=== PATIENT | male | born 1985 | race Caucasian/White ===

== ENCOUNTER 2022-08-07 03:57 | Inpatient (IN) | payer BC, SELFPAY ==
[2022-08-07] VITALS (13 sets, daily range): BP systolic 97–153; BP diastolic 43–82; PULSE 57–138; RESP 12–26; TEMP 36.7–37.2; O2SAT 93–99; BMI 30.5; BMI 32.2
--- NOTE | ~2022-08-07 | CT_ITS ---
EXAMINATION: CT HEAD WITHOUT CONTRAST CLINICAL INFORMATION: Altered mental status, new seizure COMPARISON: None available. TECHNIQUE: Contiguous axial imaging was performed from the skull base to vertex without intravenous administration of contrast. This CT examination was performed using dose optimization techniques as appropriate, variously including the following: *Automated exposure control *Adjustment of mA and/or kV according to patient size (this includes techniques or standardized protocols for targeted exams where dose is matched to indication/reason for exam; i.e. extremities or head) *Use of iterative reconstruction technique DLP: 679 mGy-cm FINDINGS: There is no evidence of acute intracranial hemorrhage or territorial infarction. No abnormal mass-effect or midline shift is seen. Evans to white matter differentiation is well preserved. No extra-axial fluid collections are identified. The ventricles are normal in size. There is no abnormal attenuation within the brain parenchyma. The osseous structures and soft tissues are normal. The mastoid air cells and visualized portions of the paranasal sinuses are well-aerated. CT/CT head/brain wo IV con IMPRESSION: No acute intracranial pathology.
--- NOTE | ~2022-08-07 | MR_ITS ---
EXAMINATION: MRI BRAIN WITHOUT CONTRAST CLINICAL INFORMATION: New onset seizures. COMPARISON: CT scan of the head 08/07/2022. TECHNIQUE: Multiplanar MR imaging the brain was performed without contrast. FINDINGS: Dedicated imaging through the temporal lobes reveals subtle asymmetric T2 signal hyperintensity within the left hippocampus. The left hippocampus is slightly rounded on coronal imaging and there is a somewhat vertical orientation of the collateral sulcus best depicted on the image 9 of 25 series 8. Otherwise no clear evidence of a discrete cortical lesion is visualized elsewhere within the right or left cerebral hemispheres. No identifiable malformation of cortical development. There is no acute territorial infarct. No pathological magnetic susceptibility artifact. Intracranial vascular flow voids are grossly maintained. Lateral and third ventricles are normal. No hydroceles. Midline structures including the cervicomedullary junction are normal. No acute bone marrow signal changes. There is no mastoid or middle ear effusion. Trivial mucosal thickening within ethmoid air cells. Globes and orbits are symmetric. MR/MR head/brain wo con IMPRESSION: There are anatomic features indicating the likelihood of incomplete left hippocampal inversion and there is also slight asymmetric signal abnormality within the left hippocampus that may represent superimposed post ictal changes particularly in the setting of recent seizure. No other identifiable malformation of cortical development is visualized elsewhere within the right lower or left cerebral hemispheres however a repeat MRI of the brain on a 3 Kati scanner with image optimization is advised for better anatomic characterization. Otherwise unremarkable examination.
--- NOTE | 2022-08-07 04:15 | PC.NURSE ---
Addendum entered by Sherlyn Latham RN 08/07/22 04:24: Seizure pads in place, ptr is on the monitoring tech at this time. Original Note: Pt comes to ER via EMS after his girlfriend woke up in the middle of the night to him shaking, foaming at the mouth, and eyes rolling back. EMS stated pt was confused during transport, uncooperative with IV or POC placement. Pt states he does not remember anything from when he fell asleep to when he was getting into the ambulance. Upon arrival at ER, pt was A&Ox4, GCS 15, with cool, dry skin. Pt reports no pain, NVD, or SOB at this time. Pt noted to desat to 80's while laying prone, O2 comes up when pt is seated upright. Pt currently in semifowlers and O2 is 97% on room air.
--- NOTE | 2022-08-07 04:35 | ECG_ITS ---
Test Reason : WEAKNESS Blood Pressure : / mmHG Vent. Rate : 088 BPM Atrial Rate : 088 BPM P-R Int : 180 ms QRS Dur : 112 ms QT Int : 368 ms P-R-T Axes : 049 034 013 degrees QTc Int : 445 ms Normal sinus rhythm with sinus arrhythmia Possible Left atrial enlargement Borderline ECG No previous ECGs available Referred By: Pepper Franklin Electronically Signed By:SHELLY PAGAN
--- NOTE | 2022-08-07 04:35 | ED_ITS ---
HPI - Seizure General Chief Complaint: Seizure Stated Complaint: ? seizure,AMS Time Seen by Provider: 08/07/22 04:08 History of Present Illness HPI Narrative: Patient is a 37-year-old male girlfriend found them in bed shaking foaming at the mouth eyes roll back with patient was confused afterwards. When EMS spoke with him he was making random statements out of context. On arrival in the emergency department patient is awake alert oriented. No history of seizures. Positive history of marijuana use only no other recreational drugs. No headache. No fever no chills. No history of malignancies. Seizure History: No Place: Home Related Data Allergies Allergy/AdvReac Type Severity Reaction Status Date / Time amoxicillin Allergy Unknown Verified 08/07/22 04:11 Penicillins Allergy Unknown Verified 08/07/22 04:11 Review of Systems Review of Systems: Positive tongue bite Bystander noted contusion after the episode Yes all other systems are reviewed and are negative PMFSH Past Medical History Attestation statement: The following information was validated with the patient. Social History Social History Alcohol intake: current Alcohol intake frequency: holidays/special occasions only Smoked in Last 30 Days: No Use of substances other than those prescribed or required for medical reasons: Yes Substance Use Type: Marijuana Substance Use Frequency: Occasionally Advance Directives: No Advance Directives Information Provided: Yes Physical Exam Vital Signs: Vital Signs: Last Vital Signs Temp 98.7 F 08/07/22 06:16 Pulse 65 08/07/22 06:16 Resp 19 08/07/22 06:16 BP 125/70 08/07/22 06:16 Pulse Ox 97 08/07/22 06:16 O2 Del Method Room Air 08/07/22 06:16 BMI result Body Mass Index 30.5 Appearance: Alert. Oriented X3. No acute distress. Eyes: Pupils equal, round and reactive to light. ENT: Pharynx normal. Possible tongue bite noted Neck: Normal inspection. Neck supple. No lymph nodes noted. No crepitus CVS: Normal heart rate and rhythm. Pulses normal. Normal S1 and S2 Respiratory: No respiratory distress. Breath sounds normal. No Wheezing. No rales Abdomen: Soft and nontender. No rigidity. No distention. good BS x4 Skin: Skin warm and dry. Normal skin color. Normal skin turgor. Extremities: No lower extremity edema. Neurovascular intact to all extremities. No Lacerations. No Rash Neuro: Oriented X 3. No motor deficit. No sensory deficit. Moving all extermities. No slurred speech Medical Decision Making Medical Decision Making [facility] Narrative: Patient likely had a seizure episode. There was shaking movement with eyes rolled back. Follow by a period of altered mental status. There is no specific cause. Patient has no history of cancer. 37 years old no history of recreational drug use. Electrolytes are unremarkable CT scan of the head was personally reviewed. It was grossly negative. No evidence of bleeding no evidence of mass effect. Given this is the 1st time patient had this. Will have patient follow seizure precaution. No driving no swimming. Follow-up with Neurology closely. In stable condition. My interpretation of the patient's EKG showed a sinus rhythm heart rate is 90 ID QRS QT within normal limits is no acute ST segment elevation. Patient's urine showed no signs of infection. U tox is positive for marijuana only Differential Diagnosis Differential Diagnoses: The differential diagnosis associated with the presentation includes Seizure, head injury, syncope Lab Data [facility] Lab Attestation statement: I reviewed the patient's lab results. 08/07/22 04:43 08/07/22 04:43 Labs: Lab Results 08/07/22 08/07/22 08/07/22 Range/Units 04:43 04:43 06:25 WBC 10.9 H (4.8-10.8) X10*3/uL RBC 5.38 (4.60-5.80) X10*6/uL Hgb 15.8 (14.0-18.0) g/dl Hct 44.8 (42.0-52.0) % MCV 83.3 (80.0-98.0) fL MCH 29.4 (27.0-33.0) pg MCHC 35.3 (31.0-36.0) g/dl RDW 12.3 (11.0-16.0) % Plt Count 320 (160-400) X10*3/uL MPV 9.4 (9.4-12.4) fL Immature Gran % (Auto) 0.6 H (0.0-0.4) % Neut % (Auto) 67.6 (45-73) % Lymph % (Auto) 22.4 (20-40) % [place] % (Auto) 8.0 (2-11) % Eos % (Auto) 0.9 (0-4) % Baso % (Auto) 0.5 (0-2) % Lymph # (Auto) 2.5 (1.2-4.9) X10*3/uL [place] # (Auto) 0.9 (0.1-1.2) X10*3/uL Eos # (Auto) 0.1 (0.0-0.4) X10*3/uL Baso # (Auto) 0.1 (0.0-0.2) X10*3/uL Abs Immat Gran (auto) 0.07 H (0.00-0.03) X10*3/uL Absolute Neuts (auto) 7.4 (2.0-8.3) x10*3/uL Absolute Nucleated RBC 0.000 (0.0-0.012) X10*3/uL Nucleated RBC % (auto) 0.0 (0.0-0.2) /100WBC Sodium 141 (135-145) mmol/L Potassium 3.7 (3.3-5.1) mmol/L Chloride 106 (96-108) mmol/L Carbon Dioxide 27 (22-29) mmol/L Anion Gap 12 (12-20) BUN 18 H (9-16) mg/dL Creatinine 1.06 (0.5-1.4) mg/dL Estim Creat Clear Calc 115.6 Estimated GFR > 60 Random Glucose 114 (60-115) mg/dL Calcium 9.5 (8.4-10.2) mg/dL Total Bilirubin 1.5 H (0.0-1.0) mg/dL Direct Bilirubin 0.4 (0.0-0.5) mg/dL AST 14 (5-37) U/L ALT 19 (0-40) U/L Alkaline Phosphatase 82 (39-117) U/L Total Protein 7.2 (6.5-8.0) g/dL Albumin 4.5 (3.5-5.0) g/dL Urine Color Yellow Urine Appearance Clear Urine pH 5.5 (5.0-9.0) Ur Specific [place] 1.025 (1.005-1.025) Urine Protein Trace (Neg-Trace) mg/dL Urine Glucose (UA) Negative (Negative) mg/dL Urine Ketones Trace (Negative) mg/dL Urine Blood Negative (Negative) Urine Nitrite Negative (Negative) Ur Leukocyte Esterase Negative (Negative) Urine RBC 0-2 (0-2) /HPF Urine WBC 0-5 (0-5) /HPF Ur Squamous Epith Cells 0-2 (0-2) /HPF Urine Bacteria None Seen (None Seen) Hyaline Casts 0-2 (0-2) /LPF Urine Opiates Screen (Not Detect) Urine Fentanyl Screen (Not Detect) Ur Barbiturates Screen (Not Detect) Ur Phencyclidine Scrn (Not Detect) Ur Amphetamines Screen (Not Detect) U Benzodiazepines Scrn (Not Detect) Urine Cocaine Screen (Not Detect) U Marijuana (THC) Screen (Not Detect) 08/07/22 Range/Units 06:25 WBC (4.8-10.8) X10*3/uL RBC (4.60-5.80) X10*6/uL Hgb (14.0-18.0) g/dl Hct (42.0-52.0) % MCV (80.0-98.0) fL MCH (27.0-33.0) pg MCHC (31.0-36.0) g/dl RDW (11.0-16.0) % Plt Count (160-400) X10*3/uL MPV (9.4-12.4) fL Immature Gran % (Auto) (0.0-0.4) % Neut % (Auto) (45-73) % Lymph % (Auto) (20-40) % [place] % (Auto) (2-11) % Eos % (Auto) (0-4) % Baso % (Auto) (0-2) % Lymph # (Auto) (1.2-4.9) X10*3/uL [place] # (Auto) (0.1-1.2) X10*3/uL Eos # (Auto) (0.0-0.4) X10*3/uL Baso # (Auto) (0.0-0.2) X10*3/uL Abs Immat Gran (auto) (0.00-0.03) X10*3/uL Absolute Neuts (auto) (2.0-8.3) x10*3/uL Absolute Nucleated RBC (0.0-0.012) X10*3/uL Nucleated RBC % (auto) (0.0-0.2) /100WBC Sodium (135-145) mmol/L Potassium (3.3-5.1) mmol/L Chloride (96-108) mmol/L Carbon Dioxide (22-29) mmol/L Anion Gap (12-20) BUN (9-16) mg/dL Creatinine (0.5-1.4) mg/dL Estim Creat Clear Calc Estimated GFR Random Glucose (60-115) mg/dL Calcium (8.4-10.2) mg/dL Total Bilirubin (0.0-1.0) mg/dL Direct Bilirubin (0.0-0.5) mg/dL AST (5-37) U/L ALT (0-40) U/L Alkaline Phosphatase (39-117) U/L Total Protein (6.5-8.0) g/dL Albumin (3.5-5.0) g/dL Urine Color Urine Appearance Urine pH (5.0-9.0) Ur Specific [place] (1.005-1.025) Urine Protein (Neg-Trace) mg/dL Urine Glucose (UA) (Negative) mg/dL Urine Ketones (Negative) mg/dL Urine Blood (Negative) Urine Nitrite (Negative) Ur Leukocyte Esterase (Negative) Urine RBC (0-2) /HPF Urine WBC (0-5) /HPF Ur Squamous Epith Cells (0-2) /HPF Urine Bacteria (None Seen) Hyaline Casts (0-2) /LPF Urine Opiates Screen Not Detected (Not Detect) Urine Fentanyl Screen Not Detected (Not Detect) Ur Barbiturates Screen Not Detected (Not Detect) Ur Phencyclidine Scrn Not Detected (Not Detect) Ur Amphetamines Screen Not Detected (Not Detect) U Benzodiazepines Scrn Not Detected (Not Detect) Urine Cocaine Screen Not Detected (Not Detect) U Marijuana (THC) Screen POSITIVE H (Not Detect) Independent Interpretation I performed an independent interpretation of an: EKG and CT Scan Interpretation: Sinus heart rate is 90 ID QRS QT within normal limits is no acute ST segment elevation CT scan of the head was grossly negative for any acute evidence of bleeding. No fracture noted Radiology Impression Discussion of test interpretation with radiology: I have reviewed the radiologist's reading. Discharge Plan Discharge Clinical Impression: Generalized seizure, New onset seizure Patient Disposition: Home, Self-Care Instructions: New-Onset Seizure in Adults (ED) Additional Instructions: No driving. No swimming. No activities that would put you in danger if he had this seizure episode again. Referrals: Chris Gonzalez MD [Physician] - 08/09/22
[2022-08-07 04:47] LABS: MANUAL DIFF FLAG NO
[2022-08-07 04:48] LABS: Basophils Absolute Auto 0.1 X10*3/uL (0.0-0.2); Basophils Percent Auto 0.5 % (0-2); Eosinophils Absolute Auto 0.1 X10*3/uL (0.0-0.4); Eosinophils Percent Auto 0.9 % (0-4); Hematocrit 44.8 % (42.0-52.0); Hemoglobin 15.8 g/dl (14.0-18.0); Imm Gran Abs Auto 0.07 X10*3/uL (0.00-0.03); Imm Gran Pct Auto 0.6 % (0.0-0.4); Lymphocytes Absolute Auto 2.5 X10*3/uL (1.2-4.9); Lymphocytes Percent Auto 22.4 % (20-40); Mean Corpuscular HGB Conc 35.3 g/dl (31.0-36.0); Mean Corpuscular Hemoglobin 29.4 pg (27.0-33.0); Mean Corpuscular Volume 83.3 fL (80.0-98.0); Mean Platelet Volume 9.4 fL (9.4-12.4); Monocytes Absolute Auto 0.9 X10*3/uL (0.1-1.2); Neutrophils Absolute Auto 7.4 x10*3/uL (2.0-8.3); Neutrophils Percent Auto 67.6 % (45-73); Platelet Count 320 X10*3/uL (160-400); Red Blood Count 5.38 X10*6/uL (4.60-5.80); Red Cell Distribution Width 12.3 % (11.0-16.0); White Blood Count 10.9 X10*3/uL (4.8-10.8)
[2022-08-07 05:05] LABS: Alanine Aminotransferase 19 U/L (0-40); Albumin Level 4.5 g/dL (3.5-5.0); Alkaline Phosphatase 82 U/L (39-117); Anion Gap 12 (12-20); Aspartate Amino Transferase 14 U/L (5-37); Bilirubin Direct 0.4 mg/dL (0.0-0.5); Bilirubin Total 1.5 mg/dL (0.0-1.0); Blood Urea Nitrogen 18 mg/dL (9-16); Calcium 9.5 mg/dL (8.4-10.2); Carbon Dioxide 27 mmol/L (22-29); Chloride 106 mmol/L (96-108); Creatinine Clr Calc Pharmacy 115.6; Estimated Glomerular Filt Rate > 60; Glucose Random 114 mg/dL (60-115); Potassium 3.7 mmol/L (3.3-5.1); Sodium 141 mmol/L (135-145); Total Protein 7.2 g/dL (6.5-8.0)
[2022-08-07 06:40] LABS: Appearance Urine Clear; Color Urine Yellow; Glucose Urine UA Negative (Negative); Leukocyte Esterase Urine Negative (Negative); Nitrite Urine Negative (Negative); PH 5.5 (5.0-9.0); Specific Gravity - Urine 1.025 (1.005-1.025); Urine Blood Negative (Negative); Urine Ketones Trace mg/dL (Negative); Urine Protein Trace mg/dL (Neg-Trace)
[2022-08-07 06:41] LABS: Amphetamine Screen Urine Not Detected (Not Detect); Barbiturates, Urine Not Detected (Not Detect); Benzodiazepines Screen Urine Not Detected (Not Detect); Cannabinoid Screen Urine POSITIVE (Not Detect); Cocaine Screen Urine Not Detected (Not Detect); Fentanyl, urine Not Detected (Not Detect); Opiate Screen Urine Not Detected (Not Detect); Phencyclidine Screen Urine Not Detected (Not Detect)
[2022-08-07 06:45] LABS: Bacteria Urine None Seen (None Seen); Hyaline Casts Urine 0-2 /LPF (0-2); RBC Urine 0-2 /HPF (0-2); Squamous Epithelial Cell Urine 0-2 /HPF (0-2); WBC Urine 0-5 /HPF (0-5)
--- NOTE | 2022-08-07 07:22 | PC.NURSE ---
assumed care of this pt at 0700. pt is awake, pleasant, alert and oriented x4. currently sitting up in bed with at bedside. rr even/unlabored. in no apparent distress. wctm
[2022-08-07] MEDS: LORazepam 2 MG/ML VIAL 1 MG IVPUSH (07:53)
--- NOTE | 2022-08-07 07:56 | PC.NURSE ---
PT HAD A WITNESSED APPROX 3 MIN TONIC CLONIC SEIZURE WITH A THRASHING AND CONFUSED POST ICTAL PHASE, MEDICATED CHARTED
[2022-08-07] MEDS: levETIRAcetam 500 MG/5 ML VIAL 1000 MG IV (08:09)
--- NOTE | 2022-08-07 08:12 | PHA.MEDREC ---
Pharmacy Consult ? Medication Reconciliation Pharmacy has completed the medication reconciliation.
--- NOTE | 2022-08-07 10:44 | PC.NURSE ---
pt sat up, had one episode of small amount emesis. sts feeling much better afterwards. pt asking if he can eat, sts i think im nauseous because i usually eat something in the morning. per provider pt may eat. tolerating po without issue. awaiting hospitalist for admission.
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
[2022-08-07] MEDS: levETIRAcetam 250 MG in 0.9 % Sodium Chloride 100 ML 410 MG IV (15:09)
[2022-08-07] MEDS: Enoxaparin Sodium 40 MG/0.4 ML SYRINGE SUBCUT (15:12)
--- NOTE | 2022-08-07 15:23 | PM.NEUROCN ---
History of Present Illness Data of Consult Service Date: 08/07/22 Primary Care Provider: Unknown Physician HPI Reason for consult: New onset multiple seizures This is a 37-year-old male found in bed by girlfriend shaking, foaming at the mouth, eyes rolled back, with post ictal confusion afterwards.? In the Er he had 2 more Sz and is admitted for further evaluation an dloaded with Poraadcelena donahue last Sz. On arrival in the emergency department patient is awake alert oriented.? No previous history of seizures.? Positive history of marijuana use only no other recreational drugs.?No head trauma. ? Review of Systems Review of Systems: Denies any recent fever chills or decrease in appetite respiratory denies any shortness of breath coverage production cardiovascular denied chest pain gastrointestinal denies any dysphagia abdominal pain nausea vomiting or diarrhea genitourinary denies any dysuria frequency or hematuria musculoskeletal denies any joint pain or swelling neuropsych see HPI all other systems reviewed are negative Yes all other systems are reviewed and are negative PMFSH Past Medical History Medical History (Updated 08/07/22 @ 14:36 by Barbie Chamberlain NP) No pertinent past medical history Family History Family History (Updated 08/07/22 @ 14:37 by Barbie Chamberlain NP) Father Alzheimer's dementia Surgical History Surgical History (Updated 08/07/22 @ 14:36 by Barbie Chamberlain NP) No pertinent past surgical history Social History Social History Alcohol intake: current Alcohol intake frequency: holidays/special occasions only Smoked in Last 30 Days: No Use of substances other than those prescribed or required for medical reasons: Yes Substance Use Type: Marijuana Substance Use Frequency: Occasionally Advance Directives: No Advance Directives Information Provided: Yes Meds Allergies Allergy/AdvReac Type Severity Reaction Status Date / Time amoxicillin Allergy Unknown Verified 08/07/22 04:11 Penicillins Allergy Unknown Verified 08/07/22 04:11 Active Medications: Current Medications Acetaminophen (Acetaminophen 325 Mg Tablet) 650 mg PO Q6H PRN PRN Reason: Pain, Mild (Pain Scale 1-3) Enoxaparin Sodium (Enoxaparin Sodium 40 Mg/0.4 Ml Syringe) 40 mg SUBCUT Q24H [facility] Last Admin: 08/07/22 15:12 Dose: 40 mg Levetiracetam 250 mg/ Sodium (Chloride) 102.5 mls @ 410 mls/hr IV Q12H [facility] Last Admin: 08/07/22 15:09 Dose: 410 mls/hr Ondansetron HCl (Ondansetron Hcl 4 Mg/2 Ml Vial) 4 mg IVPUSH Q8H PRN PRN Reason: Nausea and Vomiting Sodium Chloride (0.9 % Sodium Chloride Flush 3 Ml Syringe) 3 ml IVFLUSH QSHIFT [facility] Home Medications Medication Instructions Recorded Confirmed Last Taken Type No Known Home Meds 08/07/22 08/07/22 Unknown History Physical Exam Vital Signs: Vital Signs: Last Vital Signs Temp 98.1 F 08/07/22 11:16 Pulse 57 08/07/22 12:00 Resp 19 08/07/22 12:00 BP 115/70 08/07/22 12:00 Pulse Ox 94 08/07/22 12:00 O2 Del Method Room Air 08/07/22 12:00 BMI result Body Mass Index 30.5 Neuro: Other: Normal non focal exam Results Labs 08/07/22 04:43 08/07/22 04:43 Labs: Short CBC 08/07/22 Range/Units 04:43 WBC 10.9 H (4.8-10.8) X10*3/uL Hgb 15.8 (14.0-18.0) g/dl Hct 44.8 (42.0-52.0) % Plt Count 320 (160-400) X10*3/uL BMP 08/07/22 04:43 Sodium 141 Potassium 3.7 Chloride 106 Carbon Dioxide 27 BUN 18 H Creatinine 1.06 Calcium 9.5 Liver Function 08/07/22 Range/Units 04:43 Total Bilirubin 1.5 H (0.0-1.0) mg/dL Direct Bilirubin 0.4 (0.0-0.5) mg/dL AST 14 (5-37) U/L ALT 19 (0-40) U/L Alkaline Phosphatase 82 (39-117) U/L Albumin 4.5 (3.5-5.0) g/dL Urine 08/07/22 Range/Units 06:25 Urine Color Yellow Urine Appearance Clear Urine pH 5.5 (5.0-9.0) Ur Specific [place] 1.025 (1.005-1.025) Urine Protein Trace (Neg-Trace) mg/dL Urine Glucose (UA) Negative (Negative) mg/dL Assessment and Plan (1) Generalized seizure: Status: Acute (2) New onset seizure: Status: Acute Recom.: MRI brain , EEG. Continue Keppra 500mg bid Time Spent With Patient Time: Total time managing care of this patient today ____ minutes. Procedures Date of Service Date of Service: 08/07/22
[2022-08-07] MEDS: 0.9 % Sodium Chloride Flush 3 ML SYRINGE IVFLUSH (15:48)
[2022-08-07] MEDS: ondansetron HCL 4 MG/2 ML VIAL IVPUSH (15:48)
--- NOTE | 2022-08-08 | EEG_ITS ---
FINDINGS: Waking background activity consists of a moderate voltage 8 hertz posterior alpha frequency intermixed anteriorly with low voltage fast frequencies. Recurrent theta slowing and sharp waves are seen from the left temporal region with a phase reversal at T3 throughout the record. No clinical seizures are reported. Photic stimulation is without activation. Hyperventilation produces no change. IMPRESSION: This EEG is abnormal due to recurrent sharp discharges, sometimes lasting more than 10 seconds originating in the left temporal region with phase reversal at T3 consistent with a seizure focus in the left temporal region. Clinical correlation is suggested. MD DEBI Thompson/RAY / [id number]
[2022-08-08] MEDS: 0.9 % Sodium Chloride Flush 3 ML SYRINGE IVFLUSH ×3 (02:08→16:44)
[2022-08-08] MEDS: levETIRAcetam in NaCl (iso-os) 500 MG/100 ML PIGGYBACK 400 MG IV ×2 (02:08→16:37)
[2022-08-08 03:36] VITALS: BP 141/66; PULSE 70; RESP 18; TEMP 37.7; O2SAT 96
[2022-08-08 07:23] VITALS: BP 149/76; PULSE 69; RESP 16; TEMP 37.2; O2SAT 94
[2022-08-08 07:37] LABS: Alanine Aminotransferase 18 U/L (0-40); Albumin Level 4.1 g/dL (3.5-5.0); Alkaline Phosphatase 86 U/L (39-117); Anion Gap 11 (12-20); Aspartate Amino Transferase 18 U/L (5-37); Bilirubin Total 1.9 mg/dL (0.0-1.0); Blood Urea Nitrogen 17 mg/dL (9-16); Calcium 9.4 mg/dL (8.4-10.2); Carbon Dioxide 27 mmol/L (22-29); Chloride 110 mmol/L (96-108); Estimated Glomerular Filt Rate > 60; Glucose Random 94 mg/dL (60-115); Potassium 3.6 mmol/L (3.3-5.1); Sodium 144 mmol/L (135-145); Total Protein 6.6 g/dL (6.5-8.0)
[2022-08-08 07:55] LABS: Thyroid Stimulating Hormone 1.09 uIU/mL (0.32-4.0)
--- NOTE | 2022-08-08 09:07 | MHC.CM.PN ---
CM attempted to meet with Patient in his room but he was out of the room; CM spoke with Patient's Girlfriend/HCP. 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 Home/self care is the goal and CM has initiated and will follow for dc planning. Patient has received Covid vax x3 and his new PCP is out of [facility].
--- NOTE | 2022-08-08 10:30 | MHC.CM.PN ---
Patient is not yet medically cleared for dc (MRI today); home is the goal and CM will continue to follow.
[2022-08-08 11:23] VITALS: BP 138/62; PULSE 65; RESP 16; TEMP 37.3; O2SAT 96
--- NOTE | 2022-08-08 11:39 | HO.PM.IMPN ---
Subjective Subjective Date of Service: 08/08/22 Interval History: Pt feels absolutely fine with no seizure-like movements or activity Pt was sleep deprived prior to the witnessed seizures Review of Systems Review of Systems: Yes all other systems are reviewed and are negative Physical Exam Vital Signs: Vital Signs: Last Vital Signs Temp 99.1 F 08/08/22 11:23 Pulse 65 08/08/22 11:23 Resp 16 08/08/22 11:23 BP 138/62 08/08/22 11:23 Pulse Ox 96 08/08/22 11:23 O2 Del Method Room Air 08/08/22 11:23 BMI result Body Mass Index 32.2 Gen: in no acute distress HEENT: sclera anicteric, moist mucus membranes Neck: supple Lungs: clear to auscultation bilaterally Heart: regular rate and rhythm, no murmurs Abd: soft, non-tender, non-distended Ext: no edema Skin: warm/well-perfused Neuro: alert and oriented x3, no focal weakness, no cranial nerve palsies, and no cerebellar signs Psych: appropriate affect Objective Data Active Medications Acetaminophen (Acetaminophen 325 Mg Tablet) 650 mg PO Q6H PRN PRN Reason: Pain, Mild (Pain Scale 1-3) Enoxaparin Sodium (Enoxaparin Sodium 40 Mg/0.4 Ml Syringe) 40 mg SUBCUT Q24H [facility] Last Admin: 08/07/22 15:12 Dose: 40 mg Documented By: JOSE M Levetiracetam (Keppra) 500 mg in 100 mls @ 400 mls/hr IV Q12H [facility] Last Infusion: 08/08/22 03:40 Dose: 0 mls/hr Documented By: HEAVEN Ondansetron HCl (Ondansetron Hcl 4 Mg/2 Ml Vial) 4 mg IVPUSH Q8H PRN PRN Reason: Nausea and Vomiting Last Admin: 08/07/22 15:48 Dose: 4 mg Documented By: HARSHDA Sodium Chloride (0.9 % Sodium Chloride Flush 3 Ml Syringe) 3 ml IVFLUSH QSHIFT [facility] Last Admin: 08/08/22 09:50 Dose: 3 ml Documented By: CTORRZ Labs 08/07/22 04:43 08/08/22 06:42 Labs: Laboratory Results - last 24 hr 08/08/22 08/08/22 06:42 06:42 Anion Gap 11 L Estim Creat Clear Calc 127.0 Estimated GFR > 60 Random Glucose 94 Calcium 9.4 Magnesium 2.0 Total Bilirubin 1.9 H AST 18 ALT 18 Alkaline Phosphatase 86 Total Protein 6.6 Albumin 4.1 TSH 1.09 Assessment and Plan (1) New onset seizure: Status: Acute Plan d#2 37yo M with no chronic conditions, admitted after witnessed tonic-clonic seizures, 1 at home and 2 in the ED # new-onset seizure, tonic-clonic - loaded with levetiracteam in ED, continue 500 mg bid - EEG pending - MRI pending - Neuro consulted # hypotension - resolved, was likely due to sz # VTE ppx: LMWH # dispo: antipate home once neuro workup completed and pt on stable antiepileptic regimen In my clinical judgment, the patient requires continued inpatient hospitalization for the following reasons: sz workup Time Spent With Patient Time: Total time managing care of this patient today _35___ minutes. Quality Stroke Does the patient have a stroke diagnosis?: No VTE Prior VTE?: No VTE Risk Level:: Medical - moderate - high VTE Device Contraindication: Treatment Not Indicated VTE Drug Contraindication: N/A - Med Ordered
[2022-08-08 15:43] VITALS: BP 126/71; PULSE 62; RESP 18; TEMP 37; O2SAT 98
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
== END 2022-08-08 18:01 | disposition home or self-care (01) | DRG 53 ==
LOC: HO.ED 07:57 → HO.EDOVER 14:49 → HO.IMC 14:51
PROVIDERS: Admitting Provider Nurse Practitioner Acute Care; Emergency Provider Emergency Medicine Emergency Medical Services; Visit Provider Family Medicine
DX: R56.9 Unspecified convulsions (principal); I95.9 Hypotension, unspecified; E66.9 Obesity, unspecified; R90.89 Other abnormal findings on diagnostic imaging of central nervous system; Z68.30 Body mass index [BMI] 30.0-30.9, adult; Z88.0 Allergy status to penicillin
CPT/HCPCS: 36415; 70450; 70551; 80048; 80053; 80076; 80307; 81001; 83735; 84443; 85025; 93005; 95816; 99285; J1650; J1953; J2060; J2405